=== PATIENT | female | born 1995 | race Asian ===

== ENCOUNTER 2017-12-07 15:49 | Emergency (ER) | payer OTHER ==
[2017-12-07 16:00] VITALS: BP 128/90
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
[2017-12-07] MEDS ORDERED: LIDOCAINE OINTMENT 5% 35.44 GM TUBE TOP STA (16:20)
[2017-12-07] MEDS ORDERED: IBUPROFEN 400 MG TABLET PO STA (16:30)
[2017-12-07] MEDS ORDERED: traMADol 50 MG TABLET PO STA (16:30)
== END 2017-12-07 16:59 | disposition home or self-care (01) ==
LOC: ED 15:49
DX: T23.242A Burn of second degree of multiple left fingers (nail), including thumb, initial encounter (principal); X15.0XXA Contact with hot stove (kitchen), initial encounter; Y93.G3 Activity, cooking and baking; Y92.000 Kitchen of unspecified non-institutional (private) residence as the place of occurrence of the external cause
CPT/HCPCS: 99283; A9270